=== PATIENT | female | born 1935 | race Caucasian/White ===

== ENCOUNTER 2016-09-15 16:15 | Inpatient (IN) ==
--- NOTE | 2016-09-15 16:25 | Emergency Department Note ---
Disposition Clinical Impression: Pneumonia, Altered mental status Disposition: Admitted As Inpatient Condition: Good Referrals: Nissa Cardenas MD [Primary Care Provider] - General Adult HPI - General Stated complaint: chest pain under right breast Time Seen by Provider: 09/15/16 16:25 Source: patient Mode of arrival: private vehicle Nursing Notes Reviewed: Yes Vital Signs Reviewed: Yes - History of Present Illness HPI Narrative: 81-year-old white female presents to emergency department via private vehicle complaining of generalized pain. Patient's family is currently available to provide any further history. The patient appears to be confused, but per nursing staff this seems to be her baseline. They also say that these are similar complaints to when she has had urinary tract infection in the past. Complains of generalized abdominal pain possibly more focused on her right breast. She is able to provide very little history at this time. - Related Data Home Medications Medication Instructions Recorded Confirmed Hydrochlorothiazide 25 mg PO DAILY 06/27/16 09/15/16 Levothyroxine [Synthroid] 50 mcg PO 0630 06/27/16 09/15/16 Loratadine [Claritin] 10 mg PO DAILY 06/27/16 09/15/16 Simvastatin [Zocor] 20 mg PO HS 06/27/16 09/15/16 Aspirin [Lo-Dose Aspirin EC] 81 mg PO DAILY 08/25/16 09/15/16 Mirtazapine [Remeron] 15 mg PO HS 08/25/16 09/15/16 Potassium Chloride [Klor-Con 10] 20 meq PO BID 08/25/16 09/15/16 Allergies Allergy/AdvReac Type Severity Reaction Status Date / Time No Known Allergies Allergy Verified 06/27/16 16:21 Limitations: ROS unobtainable due to patients medical condition Cardiovascular: Reports: as per HPI, chest pain Gastrointestinal: Reports: as per HPI, abdominal pain Neurological: Reports: as per HPI, confusion Past Medical History - Past Medical History Medical history: Reports: hyperlipidemia, hypertension, thyroid disease, other Psychiatric history: Reports: no psych history FISHER history: Reports: non-contributory - Social History Smoking Status: Never smoker Smokeless Tobacco Status: No Alcohol use: Reports: none Drug use: Reports: none Physical Exam - General Limitations: altered mental status General appearance: alert, in no apparent distress - Head Head exam: atraumatic, normocephalic, normal inspection - Eye Eye exam: Present: normal appearance, PERRL, EOMI - ENT ENT exam: normal exam, normal oropharynx, mucous membranes moist - Neck Neck exam: Present: normal inspection, full ROM, trachea midline. Absent: meningismus - Chest Chest inspection: Present: normal inspection, symmetric chest wall rise - Respiratory Respiratory exam: Present: normal lung sounds bilaterally - Cardiovascular Cardiovascular exam: Present: regular rate, normal rhythm, normal heart sounds - Abdominal Exam Abdominal exam: Present: soft, tenderness, normal bowel sounds. Absent: distention, guarding, rebound, rigidity, organomegaly, pulsatile mass Abdominal tenderness: Present: diffuse, moderate - Extremities Exam Extremities exam: Present: normal inspection, full ROM. Absent: tenderness, pedal edema - Back Exam Back exam: Present: normal inspection, full ROM. Absent: tenderness, CVA tenderness (R), CVA tenderness (L) - Neurological Exam Neurological exam: Present: alert, CN II-XII intact. Absent: motor sensory deficit - Psychiatric Psychiatric exam: Present: normal affect, normal mood - Skin Skin exam: Present: warm, dry, intact, normal color Course Course Narrative: Spoke with Dr. Veloz who is on-call for Dr. Cardenas and admission to observation was discussed with him. Holding orders will be written for him. Vital Signs Temperature 98.6 F 09/15/16 16:15 Pulse Rate 106 09/15/16 16:15 Respiratory Rate 18 09/15/16 16:15 Blood Pressure 131/87 09/15/16 16:15 O2 Sat by Pulse Oximetry 96 09/15/16 16:15 Temperature 98.6 F 09/15/16 16:15 Pulse Rate 106 09/15/16 16:15 Respiratory Rate 18 09/15/16 16:15 Blood Pressure 131/87 09/15/16 16:15 O2 Sat by Pulse Oximetry 96 09/15/16 16:15 Oxygen Delivery Oxygen Delivery Room Air Medical Decision Making - Lab Data Lab results reviewed: Yes I reviewed the patient's lab results. Result diagrams: 09/15/16 16:30 09/15/16 16:30 Lab Results 09/15/16 09/15/16 09/15/16 Range/Units 16:30 16:30 16:30 WBC 13.3 H (4.3-11.1) K/mcL RBC 5.09 H (3.82-4.97) M/mcL Hgb 15.8 H (11.5-15.4) g/dL Hct 44.0 (35.3-44.9) % MCV 86.4 (83.0-100.0) fL MCH 31.0 (28.0-33.3) pg MCHC 35.9 H (31.6-35.5) g/dL RDW 12.9 (11.5-14.5) % Plt Count 373 (140-400) K/mcL MPV 8.3 L (9.4-12.4) fL Immature Gran % 0.4 (0-4) % Seg Neutrophils % 73.2 % Lymphocytes % 17.3 % Monocytes % 7.9 % Eosinophils % 0.6 % Basophils % 0.6 % Neutrophils # 9.7 H (1.6-8.9) K/mcL Lymphocytes # 2.3 (0.6-4.6) K/mcL Monocytes # 1.1 (0.0-1.3) K/mcL Eosinophils # 0.1 (0.0-0.6) K/mcL Basophils # 0.1 (0.0-0.2) K/mcL Sodium 136 (136-145) mEq/L Potassium 3.9 (3.5-4.5) mEq/L Chloride 99 (98-109) mEq/L Carbon Dioxide 25 (19-29) mEq/L BUN 8 (7-20) mg/dL Creatinine 0.96 (0.57-1.11) mg/dL Est GFR ( Amer) > 60 (> 60) Est GFR (Non-Af Amer) 56 L (> 60) BUN/Creatinine Ratio 8 (6-26) Glucose 127 H (70-99) mg/dL Calculated Osmolality 282 (280-300) Calcium 9.2 (8.6-10.8) mg/dL Total Bilirubin 1.0 (0.2-1.2) mg/dL AST 20 (5-34) Units/L ALT 9 (0-55) Units/L Alkaline Phosphatase 88 (38-126) Units/L Troponin I 0.00 (0-0.03) ng/mL Serum Total Protein 6.7 (6.0-8.3) g/dL Albumin 2.9 L (3.5-5.0) g/dL Globulin 3.8 H (2.4-3.5) g/dL Albumin/Globulin Ratio 0.8 L (1.1-2.2) Lipase 9 (8-78) Units/L Urine Color (Yellow) Urine Clarity (Clear) Urine pH (5.0-8.0) pH Units Ur Specific [place] (1.010-1.025) Urine Protein (Neg-Trace) mg/dL Urine Glucose (UA) (Normal) mg/dL Urine Ketones (Negative) mg/dL Urine Blood (Negative) Urine Nitrite (Negative) Urine Bilirubin (Negative) Urine Urobilinogen (Normal) mg/dL Ur Leukocyte Esterase (Negative) Urine Microscopic RBC (0-3) per hpf Urine Microscopic WBC (0-3) per hpf Ur Squamous Epith Cells (None-Few) per lpf Urine Bacteria (None-Few) per hpf Ur Culture Indicated? (NO) 09/15/16 Range/Units 16:35 WBC (4.3-11.1) K/mcL RBC (3.82-4.97) M/mcL Hgb (11.5-15.4) g/dL Hct (35.3-44.9) % MCV (83.0-100.0) fL MCH (28.0-33.3) pg MCHC (31.6-35.5) g/dL RDW (11.5-14.5) % Plt Count (140-400) K/mcL MPV (9.4-12.4) fL Immature Gran % (0-4) % Seg Neutrophils % % Lymphocytes % % Monocytes % % Eosinophils % % Basophils % % Neutrophils # (1.6-8.9) K/mcL Lymphocytes # (0.6-4.6) K/mcL Monocytes # (0.0-1.3) K/mcL Eosinophils # (0.0-0.6) K/mcL Basophils # (0.0-0.2) K/mcL Sodium (136-145) mEq/L Potassium (3.5-4.5) mEq/L Chloride (98-109) mEq/L Carbon Dioxide (19-29) mEq/L BUN (7-20) mg/dL Creatinine (0.57-1.11) mg/dL Est GFR ( Amer) (> 60) Est GFR (Non-Af Amer) (> 60) BUN/Creatinine Ratio (6-26) Glucose (70-99) mg/dL Calculated Osmolality (280-300) Calcium (8.6-10.8) mg/dL Total Bilirubin (0.2-1.2) mg/dL AST (5-34) Units/L ALT (0-55) Units/L Alkaline Phosphatase (38-126) Units/L Troponin I (0-0.03) ng/mL Serum Total Protein (6.0-8.3) g/dL Albumin (3.5-5.0) g/dL Globulin (2.4-3.5) g/dL Albumin/Globulin Ratio (1.1-2.2) Lipase (8-78) Units/L Urine Color Yellow (Yellow) Urine Clarity Clear (Clear) Urine pH 7.5 (5.0-8.0) pH Units Ur Specific [place] 1.015 (1.010-1.025) Urine Protein Negative (Neg-Trace) mg/dL Urine Glucose (UA) Normal (Normal) mg/dL Urine Ketones Negative (Negative) mg/dL Urine Blood Trace-intact H (Negative) Urine Nitrite Negative (Negative) Urine Bilirubin Negative (Negative) Urine Urobilinogen Normal (Normal) mg/dL Ur Leukocyte Esterase Negative (Negative) Urine Microscopic RBC 0-3 (0-3) per hpf Urine Microscopic WBC 0-3 (0-3) per hpf Ur Squamous Epith Cells Few (None-Few) per lpf Urine Bacteria Moderate H (None-Few) per hpf Ur Culture Indicated? NO (NO) - Radiology Data Radiology results reviewed: Yes I reviewed the patient's radiology results. Single view of the chest read by showed a limited examination questionable right pleural effusion and underlying right basilar opacity, potentially artifact, atelectasis, or pneumonia. CT scan of the brain showed no acute intracranial abnormality. Chronic small vessel ischemic change. Read by .
[2016-09-15 16:50] LABS: Bilirubin,Urine Negative (Negative); Blood,Urine Trace-intact (Negative); Clarity,Urine Clear (Clear); Color,Urine Yellow (Yellow); Glucose,Urine (UA) Normal (Normal); Ketones,Urine Negative (Negative); Leukocyte Esterase,Urine Negative (Negative); Nitrite,Urine Negative (Negative); PH,Urine 7.5 pH Units (5.0-8.0); Protein,Urine Negative (Neg-Trace); Specific Gravity,Urine 1.015 (1.010-1.025); Urobilinogen,Urine Normal (Normal)
[2016-09-15 16:51] LABS: Basophils # 0.1 K/mcL (0.0-0.2); Basophils % 0.6 %; Eosinophils # 0.1 K/mcL (0.0-0.6); Eosinophils % 0.6 %; Hemoglobin 15.8 g/dL (11.5-15.4); Immature Granulocytes % 0.4 % (0-4); Lymphocytes # 2.3 K/mcL (0.6-4.6); Lymphocytes % 17.3 %; Mean Corpuscular HGB Conc 35.9 g/dL (31.6-35.5); Mean Corpuscular Volume 86.4 fL (83.0-100.0); Mean Platelet Volume 8.3 fL (9.4-12.4); Monocytes # 1.1 K/mcL (0.0-1.3); Monocytes % 7.9 %; Platelet Count 373 K/mcL (140-400); Red Blood Count 5.09 M/mcL (3.82-4.97); Red Cell Distribution Width 12.9 % (11.5-14.5); Segmented Neutrophils % 73.2 %
[2016-09-15 16:53] LABS: Neutrophils # 9.7 K/mcL (1.6-8.9)
[2016-09-15 16:59] LABS: Bacteria,Urine Moderate per hpf (None-Few); RBC,Urine 0-3 per hpf (0-3); Squamous Epithelial Cell,Urine Few per lpf (None-Few); WBC,Urine 0-3 per hpf (0-3)
[2016-09-15 16:59] LABS: Alanine Aminotransferase 9 Units/L (0-55); Albumin 2.9 g/dL (3.5-5.0); Albumin/Globulin Ratio 0.8 (1.1-2.2); Alkaline Phosphatase 88 Units/L (38-126); Aspartate Amino Transferase 20 Units/L (5-34); BUN/Creatinine Ratio 8 (6-26); Blood Urea Nitrogen 8 mg/dL (7-20); Calcium 9.2 mg/dL (8.6-10.8); Carbon Dioxide 25 mEq/L (19-29); Chloride 99 mEq/L (98-109); Globulin 3.8 g/dL (2.4-3.5); Glucose 127 mg/dL (70-99); Lipase 9 Units/L (8-78); Osmolality,Calculated 282 (280-300); Potassium 3.9 mEq/L (3.5-4.5); Sodium 136 mEq/L (136-145); Total Protein 6.7 g/dL (6.0-8.3); eGFR For African Americans > 60 (> 60); eGFR For Non-African Americans 56 (> 60)
[2016-09-15] MEDS ORDERED: 0.9 % Sodium Chloride 500 ML IV.SOLN IV ONE (17:10)
[2016-09-15] MEDS ORDERED: CefTRIAXone 1,000 MG in D5% in Water (Mini-Bag+) 100 ML IVPB ONE (17:10)
[2016-09-15] MEDS ORDERED: Azithromycin 500 MG in D5% in Water 250 ML IVPB ONE (17:11)
[2016-09-15] MEDS ORDERED: Naloxone 0.4 MG/ML INJ IVP PRN (19:49)
[2016-09-15] MEDS ORDERED: Ondansetron 4 MG/2 ML VIAL IVP PRN (19:49)
[2016-09-15] MEDS ORDERED: Acetaminophen 325 MG TABLET PO PRN (19:49)
[2016-09-15] MEDS ORDERED: *HR* OxyCODONE Immed Rel 5 MG TABLET PO PRN (19:49)
[2016-09-15] MEDS ORDERED: Ibuprofen 400 MG TABLET PO PRN (19:49)
[2016-09-15] MEDS ORDERED: Ondansetron ODT 4 MG TAB.RAPDIS SL PRN (19:49)
--- NOTE | 2016-09-15 21:16 | Internal Med History&Physical ---
Date of Encounter: 09/15/16 Time of Encounter: 20:00 Assessment and Plan (1) Hypothyroidism (acquired) Current visit: Yes Status: Acute TSH on August 29 was normal at 2.6. Continue her current replacement dose. (2) Hypertension Current visit: Yes Status: Acute Blood pressure is at goal here in the hospital. Will continue her current medications. Electrolytes are okay. Qualifiers: Hypertension type: essential hypertension Qualified Code(s): I10 - Essential (primary) hypertension (3) Hyperlipidemia Current visit: Yes Status: Acute Continue her statin. Qualifiers: Hyperlipidemia type: pure hypercholesterolemia Qualified Code(s): E78.00 - Pure hypercholesterolemia, unspecified; E78.0 - Pure hypercholesterolemia (4) Dementia Current visit: Yes Status: Acute It's difficult to tell if she is at her baseline. Certainly she has significant dementia at baseline. The family felt she was a little more confused than usual. This is likely secondary to pneumonia. Qualifiers: Dementia type: Alzheimer's disease Alzheimer's disease onset: unspecified onset Dementia behavioral disturbance: without behavioral disturbance Qualified Code(s): G30.9 - Alzheimer's disease, unspecified; F02.80 - Dementia in other diseases classified elsewhere without behavioral disturbance (5) Chest pain in adult Current visit: Yes Status: Acute Her infiltrate and exam findings are on the right side of her chest. EKG and troponins were negative. Most likely this is a pleuritic type pain not cardiac. I don't think further cardiac evaluation is warranted at this time. (6) Altered mental status Current visit: Yes Status: Acute She likely has some baseline worsening secondary to pneumonia. The ED physician did not feel comfortable sending her home under the hospice care at this time, he was not confident that she would get the necessary medications at home. Qualifiers: Altered mental status type: delirium Qualified Code(s): R41.0 - Disorientation, unspecified (7) Pneumonia Current visit: Yes Status: Acute She apparently has new onset community-acquired pneumonia with right-sided chest pain, some increase in baseline confusion and localized rhonchi on my exam this evening. O2 saturation is okay at 93% on room air. She received Rocephin and azithromycin in the ED and we will continue that treatment. We are using broad-spectrum coverage to cover Streptococcus, Haemophilus influenza and atypical organisms. Qualifiers: Pneumonia type: due to Haemophilus influenzae Laterality: right Lung location: lower lobe of lung Qualified Code(s): J14 - Pneumonia due to Hemophilus influenzae Internal Medicine - H&P: HPI Chief complaint: Right-sided chest pain, cough, confusion. Admitted From: Home Plans for Post Hospital Care: Home History of present illness: Ms. Saucedo is a 81 year old female who is brought to the hospital by her for the above complaints. Family reports on the evening of admission she developed right-sided chest pain. She describes it as being located under her right breast. She is confused when I see her in the hospital for she is unable to give any details of her current or past medical history at all. She was not able to provide much other history in the emergency room nor did the family have much to add. They did report that she had a cough but nonproductive recently though they could not be specific, he days this is been present. She's had no fever. I discussed her case with Dr. Cardenas since evening she was able to provide a little more information. I also reviewed her August [address] Cardenas, office visits from July 23 and May 30 as well. She had a CT of her abdomen and pelvis without contrast on August 29. This demonstrated bibasilar atelectasis. There is no acute process. Indication for the study that time was acute right lower quadrant pain with hematuria. The reported in the ED this evening that he felt she was more confused than her baseline. In discussing the case with Dr. Cardenas and reviewing the chart here on the floor, however, she has significant dementia at baseline, not being able to find the bathroom in her home. Past Med Surg Social Fam HX - Past Medical History Source: old records reviewed, obtained from family Medical history: dementia (She has a history of dementia and has seen a neurologist for this.), hyperlipidemia, hypertension, thyroid disease ( Hypothyroidism, on oral replacement.), TIA (This occurred I believe in June 2016. He was sent to [facility] for evaluation. Carotid artery study and MRIs were normal per her 's report to Dr. Cardenas on July. She went to the [facility] at [place] for a while. He was discharged from there on 07/22/16. She has been since then. ), other Psychiatric history: no psych history - Past Surgical History Surgical History: no surgical history - Social History Smoking Status: Never smoker Smokeless Tobacco Status: No Alcohol use: none Drug use: none - Family History Daughter Adopted: No Living Status: Still Living Hx Family Cancer: Yes (Daughter had cancer, treated with chemotherapy and radiation, metastatic to) Mother Living Status: (Mother had dementia) Father Living Status: (Cause of unknown) Internal Medicine - H&P: Meds Hydrochlorothiazide 25 mg PO DAILY 06/27/16 [History] Levothyroxine [Synthroid] 50 mcg PO 0630 06/27/16 [History] Loratadine [Claritin] 10 mg PO DAILY 06/27/16 [History] Simvastatin [Zocor] 20 mg PO HS 06/27/16 [History] Aspirin [Lo-Dose Aspirin EC] 81 mg PO DAILY 08/25/16 [History] Mirtazapine [Remeron] 15 mg PO HS 08/25/16 [History] Potassium Chloride [Klor-Con 10] 20 meq PO BID 08/25/16 [History] Allergies No Known Allergies Allergy (Verified 06/27/16 16:21) ROS unobtainable: due to mental status (Positives in the history are mentioned in the history of present illness. She is unable to provide any specific information with me today. She is conversant but probably tells me" I don't know " or answers yes to everything else.) All Systems PM: A 10-system review of systems was performed and is negative for pertinent findings except as documented above in the HPI. - Constitutional Vitals: Temp Pulse Resp BP Pulse Ox 98.9 F 79 16 131/71 93 L 09/15/16 19:57 09/15/16 19:57 09/15/16 19:57 09/15/16 19:57 09/15/16 19:57 General appearance: Present: A&O X 1 (She can state her last name, has a little more trouble with her first name. She cannot tell me where she is or what day it is. She tells me that she has sons and daughters but cannot recall how many or what their names are.), disheveled, pleasant (She is in no distress though she is feeling with her bus monitor wires consistently. Her weight seems appropriate. She speaks in sentences but again has very little recall of medical problems, family issues, etc.) - Head Head exam: Present: atraumatic, normocephalic - Eye Eye exam: Present: EOMI, normal appearance, PERRL, conjuntiva pink, sclera anicteric Pupils: Present: PERRL - ENT ENT exam: Present: mucous membranes moist, normal oropharynx (Right ear canal is occluded with cerumen. Left TM is easily reviewed and is normal. Hearing is intact to general conversation.) - Neck Neck exam general surgery: Present: normal inspection, supple, trachea midline. Absent: lymphadenopathy, tenderness, thyromegaly - Respiratory Respiratory exam: Present: CTAB, rhonchi (To my exam she has definite rhonchi right lower posterior lung hennessy). Absent: accessory muscle use, chest wall tenderness, rales, respiratory distress, wheezes - Cardiovascular Cardiovascular exam: Present: RRR, +S1, +S2. Absent: diastolic murmur, gallop, rubs, systolic murmur - GI/Abdominal GI/Abdominal exam: Present: normal bowel sounds, soft, no peritoneal signs. Absent: distended, guarding, mass, rebound, tenderness - Extremities Exam Extremities exam: Present: warm, radial pulses palpable and symetrical. Absent : calf tenderness (Posterior tibial pulses are normal bilaterally.), cyanotic, pedal edema - Neurological Exam Neurological exam: Present: alert, oriented X3, no focal deficits. Absent: facial droop, speech deficit - Psychiatric Psychiatric exam: Present: agitated (Only mildly agitated), normal affect - Skin Skin exam: Present: abrasion (She has a approximately 8 cm area of mild bruising on the left forearm. There are some mild excoriations here, it looks like it may be a rug burn of some type as a result of minor trauma, the skin is intact.), dry, intact Internal Med - H&P Results - Labs CBC & Chem 7: 09/15/16 16:30 09/15/16 16:30 - EKG Data -: EKG Interpreted by Myself EKG shows normal: sinus rhythm, axis (Borderline left axis deviation at -30), ST -T waves (Nonspecific T-wave abnormality.) - VTE Documentation of Mechanical Device: Graduated compression elastic hosiery Deep Vein Thrombosis/Pulmonary Embolism Present on Admission: No
[2016-09-15] MEDS: 0.9 % Sodium Chloride 1,000 ML IVC SCH (22:14)
[2016-09-15] MEDS: Mirtazapine 15 MG TABLET PO SCH (22:14)
[2016-09-16 05:38] LABS: Basophils # 0.1 K/mcL (0.0-0.2); Basophils % 0.4 %; Eosinophils % 0.1 %; Hematocrit 42.4 % (35.3-44.9); Hemoglobin 15.3 g/dL (11.5-15.4); Immature Granulocytes % 0.8 % (0-4); Lymphocytes # 1.9 K/mcL (0.6-4.6); Lymphocytes % 11.3 %; Mean Corpuscular HGB Conc 36.1 g/dL (31.6-35.5); Mean Corpuscular Hemoglobin 30.9 pg (28.0-33.3); Mean Corpuscular Volume 85.7 fL (83.0-100.0); Mean Platelet Volume 8.2 fL (9.4-12.4); Monocytes # 1.5 K/mcL (0.0-1.3); Monocytes % 8.7 %; Platelet Count 343 K/mcL (140-400); Red Blood Count 4.95 M/mcL (3.82-4.97); Red Cell Distribution Width 13.1 % (11.5-14.5); Segmented Neutrophils % 78.7 %
[2016-09-16 05:39] LABS: Neutrophils # 13.1 K/mcL (1.6-8.9)
[2016-09-16 05:48] LABS: BUN/Creatinine Ratio 12 (6-26); Blood Urea Nitrogen 10 mg/dL (7-20); Calcium 8.9 mg/dL (8.6-10.8); Carbon Dioxide 19 mEq/L (19-29); Chloride 103 mEq/L (98-109); Glucose 146 mg/dL (70-99); Osmolality,Calculated 276 (280-300); Potassium 4.3 mEq/L (3.5-4.5); Sodium 132 mEq/L (136-145); eGFR For African Americans > 60 (> 60); eGFR For Non-African Americans > 60 (> 60)
[2016-09-16] MEDS: Azithromycin 250 MG TABLET PO SCH (08:17)
[2016-09-16] MEDS: Loratadine 10 MG TABLET PO SCH (08:18)
[2016-09-16] MEDS: Aspirin Enteric Coated 81 MG Tablet PO SCH (08:18)
--- NOTE | 2016-09-16 08:31 | Internal Med Progress Note ---
Date of Encounter: 09/16/16 Time of Encounter: 08:30 - Assessment and plan (1) Dementia Current Visit: Yes Status: Acute Assessment and plan: She is at baseline she is never able to answer questions she only knows her first name at baseline. Does not know where she is for years. At a progressive decline over the past 2 years. She has had workup for this that did not show any reversible problems. Qualifiers: Dementia type: Alzheimer's disease Alzheimer's disease onset: unspecified onset Dementia behavioral disturbance: without behavioral disturbance Qualified Code(s): G30.9 - Alzheimer's disease, unspecified; F02.80 - Dementia in other diseases classified elsewhere without behavioral disturbance (2) Hyperlipidemia Current Visit: Yes Status: Acute Assessment and plan: Continue home medication Qualifiers: Hyperlipidemia type: pure hypercholesterolemia Qualified Code(s): E78.00 - Pure hypercholesterolemia, unspecified; E78.0 - Pure hypercholesterolemia (3) Hypertension Current Visit: Yes Status: Acute Assessment and plan: Home medications that appears to be stable Qualifiers: Hypertension type: essential hypertension Qualified Code(s): I10 - Essential (primary) hypertension (4) Hypothyroidism (acquired) Current Visit: Yes Status: Acute Assessment and plan: Continue home medication last TSH was (5) Pneumonia Current Visit: Yes Status: Acute Assessment and plan: Need the Rocephin and Zithromax. She has been increasing her temperature was 100.2. She is not able to care for herself. It is not safe to send her home her O2 sats have been borderline low, but have not required oxygen. Her white count has become elevated. She has not improved to baseline. He is not safe to send her home due to the worsening of her condition. Will likely need at least a 3 midnight stay. Qualifiers: Pneumonia type: due to Haemophilus influenzae Laterality: right Lung location: lower lobe of lung Qualified Code(s): J14 - Pneumonia due to Hemophilus influenzae (6) Hyponatremia Current Visit: Yes Status: Acute Assessment and plan: Likely due to dehydration she is just getting 50 mL of normal saline an hour. We will repeat this and see how her mouth intake is if it remains low we will need to increase her IV fluids. Not ready to be off IV fluids she will likely need a several midnight stay. - Subjective Interval history: She was out at the nurses station all night. She has been pleasantly confused but not combative. She did have some breakfast which she had emesis afterwards. She has a mild cough. She has not Voiced any complaints or concerns. She is not really able to answer questions. but thAt is not unusual for her - Constitutional Vitals: Temp Pulse Resp BP Pulse Ox 98.4 F 90 16 130/69 93 L 09/16/16 07:00 09/16/16 07:00 09/16/16 07:00 09/16/16 07:00 09/16/16 07:00 General appearance: Present: A&O X 1 (she knows her first name only not her last name. ), disheveled, pleasant (She is in no distress though she is feeling with her cardiac cath rn wires consistently. Her weight seems appropriate. She speaks in sentences but again has very little recall of medical problems, family issues, etc.) - Head Head exam: Present: atraumatic, normocephalic - Neck Neck exam general surgery: Present: trachea midline. Absent: lymphadenopathy - Respiratory Respiratory exam: Present: rhonchi (rll) - Cardiovascular Cardiovascular exam: Present: RRR, +S1, +S2 - GI/Abdominal GI/Abdominal exam: Present: normal bowel sounds, soft, no peritoneal signs. Absent: guarding, rebound, tenderness - Extremities Exam Extremities exam: Present: normal capillary refill, warm. Absent: pedal edema ( bilateral arin hose) - Skin Skin exam: Present: dry, warm. Absent: rash Internal Medicine: Result - Labs CBC & Chem 7: 09/16/16 05:15 09/16/16 05:15 Labs: Short CBC 09/16/16 Range/Units 05:15 WBC 16.7 H (4.3-11.1) K/mcL Hgb 15.3 (11.5-15.4) g/dL Hct 42.4 (35.3-44.9) % Plt Count 343 (140-400) K/mcL Neutrophils # 13.1 H (1.6-8.9) K/mcL BMP 09/16/16 05:15 Sodium 132 L Potassium 4.3 Chloride 103 Carbon Dioxide 19 BUN 10 Creatinine 0.85 Glucose 146 H Calcium 8.9 - VTE Documentation of Mechanical Device: Graduated compression elastic hosiery Deep Vein Thrombosis/Pulmonary Embolism Present on Admission: No Consult Discharge Plan - Plan Referrals: Nissa Cardenas MD [Primary Care Provider] -
[2016-09-16] MEDS: *HR* Enoxaparin 30 MG/0.3 ML SYRINGE SQ SCH (12:18)
--- NOTE | 2016-09-16 14:43 | Electrocardiograph Report ---
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
[2016-09-16] MEDS: 0.9 % Sodium Chloride 1,000 ML IVC SCH (15:24)
[2016-09-16] MEDS: CefTRIAXone 1,000 MG in D5% in Water (Mini-Bag+) 100 ML IVPB SCH (17:50)
[2016-09-16] MEDS: Mirtazapine 15 MG TABLET PO SCH (20:37)
[2016-09-17] MEDS: 0.9 % Sodium Chloride 1,000 ML IVC SCH ×5 (02:11→23:06)
[2016-09-17] MEDS: *HR* Enoxaparin 30 MG/0.3 ML SYRINGE SQ SCH (05:48)
[2016-09-17] MEDS: Loratadine 10 MG TABLET PO SCH (08:12)
[2016-09-17] MEDS: Aspirin Enteric Coated 81 MG Tablet PO SCH (08:12)
[2016-09-17] MEDS: Azithromycin 250 MG TABLET PO SCH (08:12)
[2016-09-17 09:05] LABS: Basophils % 0.4 %; Eosinophils # 0.1 K/mcL (0.0-0.6); Eosinophils % 0.4 %; Hematocrit 36.5 % (35.3-44.9); Hemoglobin 12.8 g/dL (11.5-15.4); Immature Granulocytes % 0.6 % (0-4); Lymphocytes % 9.2 %; Mean Corpuscular HGB Conc 35.1 g/dL (31.6-35.5); Mean Corpuscular Hemoglobin 30.5 pg (28.0-33.3); Mean Corpuscular Volume 87.1 fL (83.0-100.0); Mean Platelet Volume 8.8 fL (9.4-12.4); Monocytes % 8.4 %; Platelet Count 301 K/mcL (140-400); Red Blood Count 4.19 M/mcL (3.82-4.97)
[2016-09-17 09:07] LABS: BUN/Creatinine Ratio 11 (6-26); Blood Urea Nitrogen 8 mg/dL (7-20); Calcium 8.3 mg/dL (8.6-10.8); Carbon Dioxide 23 mEq/L (19-29); Chloride 106 mEq/L (98-109); Glucose 105 mg/dL (70-99); Osmolality,Calculated 281 (280-300); Potassium 3.6 mEq/L (3.5-4.5); Sodium 136 mEq/L (136-145); eGFR For African Americans > 60 (> 60); eGFR For Non-African Americans > 60 (> 60)
[2016-09-17 09:40] LABS: Basophils # 0.1 K/mcL (0.0-0.2); Neutrophils # 9.2 K/mcL (1.6-8.9)
[2016-09-17] MEDS: CefTRIAXone 1,000 MG in D5% in Water (Mini-Bag+) 100 ML IVPB SCH (17:41)
--- NOTE | 2016-09-17 18:22 | Internal Med Progress Note ---
Date of Encounter: 09/17/16 Time of Encounter: 10:45 - Assessment and plan (1) Pneumonia Current Visit: Yes Status: Acute Assessment and plan: Need the Rocephin and Zithromax. her temp is better af. She is not able to care for herself. It is not safe to send her home her O2 sats have been borderline low, but have not required oxygen. Her white count has become elevated, but is back to normal today She has not improved to baseline, but she is better today. He is not safe to send her home due to the worsening of her condition. Will likely need at least a 3 midnight stay. Qualifiers: Pneumonia type: due to unspecified organism Laterality: right Lung location: lower lobe of lung Qualified Code(s): J18.9 - Pneumonia, unspecified organism (2) Dementia Current Visit: Yes Status: Acute Assessment and plan: She is at baseline she is never able to answer questions she only knows her first name at baseline. has not known where she is for years. At a progressive decline over the past 2 years. She has had workup for this that did not show any reversible problems. She has prn trazodone for nights if she gets aggitated Qualifiers: Dementia type: Alzheimer's disease Alzheimer's disease onset: unspecified onset Dementia behavioral disturbance: without behavioral disturbance Qualified Code(s): G30.9 - Alzheimer's disease, unspecified; F02.80 - Dementia in other diseases classified elsewhere without behavioral disturbance (3) Hyperlipidemia Current Visit: Yes Status: Acute Assessment and plan: Continue home medication Qualifiers: Hyperlipidemia type: pure hypercholesterolemia Qualified Code(s): E78.00 - Pure hypercholesterolemia, unspecified; E78.0 - Pure hypercholesterolemia (4) Hypertension Current Visit: Yes Status: Acute Assessment and plan: Home medications that appears to be stable Qualifiers: Hypertension type: essential hypertension Qualified Code(s): I10 - Essential (primary) hypertension (5) Hypothyroidism (acquired) Current Visit: Yes Status: Acute Assessment and plan: Continue home medication last TSH was normal (6) Hyponatremia Current Visit: Yes Status: Acute Assessment and plan: improved with ivf. - Subjective Interval history: She is unable to answer questions in a reliable manner due to her dementia. she does deny chest pain, sob, pain, nausea. she is eating better but breakfast was still small bites. no emesis since yesterday morning. last night she was confused and aggitated. given trazadone. slept some this morning. currently she is resting in the bed and appears comfortable - Constitutional Vitals: Temp Pulse Resp BP Pulse Ox 98.8 F 93 18 144/84 96 09/17/16 12:32 09/17/16 12:32 09/17/16 12:32 09/17/16 12:32 09/17/16 12:32 General appearance: Present: A&O X 1 (first and last name today), disheveled, pleasant - Head Head exam: Present: atraumatic, normocephalic - Neck Neck exam general surgery: Present: supple, trachea midline. Absent: lymphadenopathy - Respiratory Respiratory exam: Present: rhonchi (less in the right base today. improved) - Cardiovascular Cardiovascular exam: Present: RRR, +S1, +S2. Absent: systolic murmur - GI/Abdominal GI/Abdominal exam: Present: soft, no peritoneal signs. Absent: guarding, mass, rebound, tenderness - Extremities Exam Extremities exam: Present: normal capillary refill, warm. Absent: pedal edema ( arin hose inplace) - Skin Skin exam: Present: dry, warm. Absent: rash Internal Medicine: Result - Labs CBC & Chem 7: 09/17/16 07:18 09/17/16 07:18 Labs: Short CBC 09/17/16 Range/Units 07:18 WBC 11.3 H (4.3-11.1) K/mcL Hgb 12.8 D (11.5-15.4) g/dL Hct 36.5 (35.3-44.9) % Plt Count 301 (140-400) K/mcL Neutrophils # 9.2 H (1.6-8.9) K/mcL BMP 09/17/16 07:18 Sodium 136 Potassium 3.6 Chloride 106 Carbon Dioxide 23 BUN 8 Creatinine 0.72 Glucose 105 H Calcium 8.3 L - VTE Documentation of Mechanical Device: Graduated compression elastic hosiery Deep Vein Thrombosis/Pulmonary Embolism Present on Admission: No Consult Discharge Plan - Plan Referrals: Nissa Cardenas MD [Primary Care Provider] -
[2016-09-17] MEDS: Mirtazapine 15 MG TABLET PO SCH (19:39)
[2016-09-18] MEDS: *HR* Enoxaparin 40 MG/0.4 ML SYRINGE SQ SCH (05:40)
[2016-09-18] MEDS: Aspirin Enteric Coated 81 MG Tablet PO SCH (09:58)
[2016-09-18] MEDS: Azithromycin 250 MG TABLET PO SCH (09:58)
[2016-09-18] MEDS: Loratadine 10 MG TABLET PO SCH (09:59)
[2016-09-18] MEDS: 0.9 % Sodium Chloride 1,000 ML IVC SCH (13:12)
--- NOTE | 2016-09-18 13:26 | Internal Med Progress Note ---
Date of Encounter: 09/18/16 Time of Encounter: 13:52 - Assessment and plan (1) Pneumonia Current Visit: Yes Status: Acute Assessment and plan: Need the Rocephin and Zithromax. her temp is better af. She is not able to care for herself. It is not safe to send her home her O2 sats have been borderline low, but have not required oxygen. Her white count has become elevated, but is back to normal today She has not improved to baseline, but she is better today. He is not safe to send her home due to the worsening of her condition. Will likely need at least a 3 midnight stay.will likely send her to the [facility] Qualifiers: Pneumonia type: due to unspecified organism Laterality: right Lung location: lower lobe of lung Qualified Code(s): J18.9 - Pneumonia, unspecified organism (2) Dementia Current Visit: Yes Status: Acute Assessment and plan: She is at baseline she is never able to answer questions she only knows her first name at baseline. has not known where she is for years. At a progressive decline over the past 2 years. She has had workup for this that did not show any reversible problems. She has prn trazodone for nights if she gets aggitated. will send to [facility] on d/c Qualifiers: Dementia type: Alzheimer's disease Alzheimer's disease onset: unspecified onset Dementia behavioral disturbance: without behavioral disturbance Qualified Code(s): G30.9 - Alzheimer's disease, unspecified; F02.80 - Dementia in other diseases classified elsewhere without behavioral disturbance (3) Hyperlipidemia Current Visit: Yes Status: Acute Assessment and plan: Continue home medication Qualifiers: Hyperlipidemia type: pure hypercholesterolemia Qualified Code(s): E78.00 - Pure hypercholesterolemia, unspecified; E78.0 - Pure hypercholesterolemia (4) Hypertension Current Visit: Yes Status: Acute Assessment and plan: Home medications that appears to be stable Qualifiers: Hypertension type: essential hypertension Qualified Code(s): I10 - Essential (primary) hypertension (5) Hypothyroidism (acquired) Current Visit: Yes Status: Acute Assessment and plan: Continue home medication last TSH was normal (6) Hyponatremia Current Visit: Yes Status: Acute Assessment and plan: improved with ivf. - Subjective Interval history: She is unable to answer questions in a reliable manner due to her dementia. she does deny chest pain, sob, pain, nausea. currently she is resting in the chair and appears comfortable she has been confused pulling at the iv and knotting up the tele wires - Constitutional Vitals: Temp Pulse Resp BP Pulse Ox 97.9 F 78 16 125/79 96 09/18/16 11:40 09/18/16 11:40 09/18/16 11:40 09/18/16 11:40 09/18/16 11:40 General appearance: Present: A&O X 1 (first and last name today), pleasant - Head Head exam: Present: atraumatic, normocephalic - Neck Neck exam general surgery: Present: supple, trachea midline. Absent: lymphadenopathy - Respiratory Respiratory exam: Present: CTAB (improved today) - Cardiovascular Cardiovascular exam: Present: RRR, +S1, +S2. Absent: systolic murmur - GI/Abdominal GI/Abdominal exam: Present: normal bowel sounds, soft, no peritoneal signs. Absent: guarding, mass, tenderness - Extremities Exam Extremities exam: Present: warm. Absent: pedal edema (arin hose bilateral) - Skin Skin exam: Present: dry, warm. Absent: rash Internal Medicine: Result - Labs CBC & Chem 7: 09/17/16 07:18 09/17/16 07:18 - VTE Documentation of Mechanical Device: Graduated compression elastic hosiery Deep Vein Thrombosis/Pulmonary Embolism Present on Admission: No Consult Discharge Plan - Plan Referrals: Nissa Cardenas MD [Primary Care Provider] -
--- NOTE | 2016-09-18 13:54 | Physician Discharge Referral ---
ExtendedCare Referral Info Transfer To: [facility] Provider in Charge: Ronald Provider in Charge after Transfer: Other Didi) Institutional Level of Care: Skilled - Diagnosis (1) Pneumonia Priority: Primary Status: Acute (2) Dementia Priority: Secondary Status: Acute (3) Hyperlipidemia Priority: Secondary Status: Acute (4) Hypertension Priority: Secondary Status: Acute (5) Hypothyroidism (acquired) Priority: Secondary Status: Acute (6) Hyponatremia Priority: Secondary Status: Acute Prognosis: Good Aware of Diagnosis: Family ( she is confused. she has been informed but is not really aware) Aware of Prognosis: Family - Transfer Medications Home Medications: Hydrochlorothiazide 25 mg PO DAILY 06/27/16 [History] Levothyroxine [Synthroid] 50 mcg PO 0630 06/27/16 [History] Loratadine [Claritin] 10 mg PO DAILY 06/27/16 [History] Simvastatin [Zocor] 20 mg PO HS 06/27/16 [History] Aspirin [Lo-Dose Aspirin EC] 81 mg PO DAILY 08/25/16 [History] Mirtazapine [Remeron] 15 mg PO HS 08/25/16 [History] Potassium Chloride [Klor-Con 10] 20 meq PO BID 08/25/16 [History] Acetaminophen [Tylenol] 650 mg PO Q6HR PRN #0 tablet 09/19/16 [Rx] Ibuprofen [Motrin] 400 mg PO Q6HR PRN #0 tablet 09/19/16 [Rx] TraZODone 50 mg PO HS PRN #0 tablet 09/19/16 [Rx] Allergies/Adverse Reactions: Allergies No Known Allergies Allergy (Verified 09/15/16 22:00) - Respiratory Orders Smoking Cessation: Smoking cessation has been advised. For more information, call the [place] Tobacco Quit Line at 1-349-QFSL-NOW. - Lab Orders Lab Orders: 2 Step Mantoux Test per State regulation, CBC, U/A - Ancillary Orders May use pressure relief devices daily prn, May go on BHUMI w/family/respon constitution party w /meds at nurse discretion PRN, May consult with Dentist, Potato Spotter, Manager Ethics PRN - Mobility Orders Ambulate - Rehabiliation Orders Rehab Potential: Good Rehab Orders: Evaluation for Physical Therapy, Evaluation for Occupational Therapy - Treatments Skin tear care topically daily PRN per policy, May check for fecal impaction rectally daily PRN, Fleet enema rectally every other day PRN cleansing purposes - Diet Orders Cardiac CERTIFICATION: I certify that the transfer of the above named patient to an Extended Care Facility is necessary for the continuing treatment of the diagnosis listed. The above information is true and accurate reflection of patient's current condition. Confidential - Redisclosure prohibited without a patient's written consent.
[2016-09-18] MEDS ORDERED: CefTRIAXone 1,000 MG VIAL IM SCH (18:00)
[2016-09-18] MEDS ORDERED: Lidocaine 1% 20 ML MDV INFILT ONE (20:35)
[2016-09-18] MEDS: Mirtazapine 15 MG TABLET PO SCH (20:40)
[2016-09-19] MEDS: *HR* Enoxaparin 40 MG/0.4 ML SYRINGE SQ SCH (05:07)
[2016-09-19 08:05] VITALS: BP 139/75
--- NOTE | 2016-09-19 08:32 | Discharge Summary ---
Date of Encounter: 09/19/16 Time of Encounter: 08:32 - Discharge Diagnosis (1) Pneumonia Priority: Primary Status: Acute Comments: She was admitted with a right lower lobe pneumonia. She received Rocephin and Zithromax for 5 daily doses. Her white count went up to 16,000, it was back down to 11,000. She has been afebrile for the past 2 days. Is not Coughing. she is not short of breath, and her oxygen saturation was borderline low down to 90% but she did not require oxygen. She is stable for discharge to [facility]. She has finished her antibiotics. Qualifiers: Pneumonia type: due to unspecified organism Laterality: right Lung location: lower lobe of lung Qualified Code(s): J18.9 - Pneumonia, unspecified organism (2) Dementia Priority: Secondary Status: Acute Comments: Her dementia is severe it has not changed from baseline she is always confused occasionally she will get agitated and pull at her IV. she has not been combative she has always been pleasant. She is easily entertained with folding washcloths, conversation she was kept by the nurses station and was quite pleasant. Discussed dementia medicine Aricept etc. with her in the past it was cost prohibitive and felt that the risks outweighed the benefits. Qualifiers: Dementia type: Alzheimer's disease Alzheimer's disease onset: unspecified onset Dementia behavioral disturbance: without behavioral disturbance Qualified Code(s): G30.9 - Alzheimer's disease, unspecified; F02.80 - Dementia in other diseases classified elsewhere without behavioral disturbance (3) Hyperlipidemia Priority: Secondary Status: Acute Comments: We will continue her home medication and stable her labs are up-to-date. Qualifiers: Hyperlipidemia type: pure hypercholesterolemia Qualified Code(s): E78.00 - Pure hypercholesterolemia, unspecified; E78.0 - Pure hypercholesterolemia (4) Hypertension Priority: Secondary Status: Acute Comments: Her home medication has been continued Qualifiers: Hypertension type: essential hypertension Qualified Code(s): I10 - Essential (primary) hypertension (5) Hypothyroidism (acquired) Priority: Secondary Status: Acute Comments: Last TSH was therapeutic. Continue her on her home medication. (6) Hyponatremia Priority: Secondary Status: Acute Comments: Is due to dehydration with the pneumonia responded nicely to IV fluids. - Discharge Medications Home Medications: Hydrochlorothiazide 25 mg PO DAILY 06/27/16 [History] Levothyroxine [Synthroid] 50 mcg PO 0630 06/27/16 [History] Loratadine [Claritin] 10 mg PO DAILY 06/27/16 [History] Simvastatin [Zocor] 20 mg PO HS 06/27/16 [History] Aspirin [Lo-Dose Aspirin EC] 81 mg PO DAILY 08/25/16 [History] Mirtazapine [Remeron] 15 mg PO HS 08/25/16 [History] Potassium Chloride [Klor-Con 10] 20 meq PO BID 08/25/16 [History] TraZODone 50 mg PO HS PRN #0 tablet 09/19/16 [Rx] Allergies/Adverse Reactions: Allergies No Known Allergies Allergy (Verified 09/15/16 22:00) Date of admission: 09/16/16 11:26 Primary care physician: Nissa Cardenas, Consults: 09/17/16 11:16 Consult to Physical Therapy [CONS] Routine Comment: Evaluate, develop and implement POC OT [Consult to Occupational Therapy] [CONS] Routine Comment: Evaluate, develop and implement POC - Patient Status Disposition: Transfer SNF Condition: Good Overall status at discharge: patient is progressing back to baseline - Discharge Instructions Instructions: Chronic Hypertension (DC), Hypothyroidism (DC), Pneumonia (DC) Follow Up With: Nissa Cardenas MD [Primary Care Provider] - Forms: ED Satisfaction Letter - Diet and Activity Activity: as per physical therapy Diet: low fat, low cholesterol, low salt diet Interval History: sHe presented from home to the emergency room with pain in her lungs and short of breath. She was found to have a right lower lobe pneumonia. She was started on Rocephin and Zithromax. Her white count did become elevated to 16, 000. It did go back to 11,000 with the antibiotics. She has been afebrile for the past 2 days. Her oxygen has been normal to borderline low. at the lowest her oxygen saturation was 90% on room air. She has pretty severe cognitive decline and dementia that has been at her baseline. She has not been combative but she has been occasionally pulling at her IV. She was easily entertained at the nurse's station with folding washcloths and giving simple tasks to keep her occupied. She has been pleasant. She was hyponatremic due to dehydration on admission that responded nicely to IV fluids and her sodium went back to normal. Due to the pneumonia and the cognitive decline she will be sent to [facility] for further rehabilitation. sHe was discharged there in a stable condition Hospital course: Ms. Saucedo is a 81 year old female - Time Spent with Patient Total time spent providing and/or coordinating discharge services: - Constitutional Vitals: Temp Pulse Resp BP Pulse Ox 98.9 F 74 18 139/75 93 L 09/19/16 08:05 09/19/16 08:05 09/19/16 08:05 09/19/16 08:05 09/19/16 08:05 General appearance: Present: A&O X 1 (first and last name today), pleasant - Head Head exam: Present: atraumatic, normocephalic - Neck Neck exam general surgery: Present: supple, trachea midline. Absent: lymphadenopathy, tenderness - Respiratory Respiratory exam: Present: CTAB (rhonci has resolved) - Cardiovascular Cardiovascular exam: Present: RRR, +S1, +S2 - GI/Abdominal GI/Abdominal exam: Present: normal bowel sounds, soft, no peritoneal signs. Absent: distended, guarding, mass, rebound, tenderness - Extremities Exam Extremities exam: Present: warm. Absent: pedal edema (arin hose on bilateral), tenderness - Skin Skin exam: Present: dry, warm. Absent: rash - VTE Documentation of Mechanical Device: Graduated compression elastic hosiery Deep Vein Thrombosis/Pulmonary Embolism Present on Admission: No
[2016-09-19] MEDS: Aspirin Enteric Coated 81 MG Tablet PO SCH (09:23)
[2016-09-19] MEDS: Azithromycin 250 MG TABLET PO SCH (09:23)
[2016-09-19] MEDS: Loratadine 10 MG TABLET PO SCH (09:23)
== END 2016-09-19 11:10 | DRG 194 ==
LOC: EMEROOGRE 16:15 → INPGRE 16:15
PROVIDERS: ADMIT Family Medicine; ATTEND Family Medicine